=== PATIENT | female | born 1975 | race Hispanic/Latino ===

== ENCOUNTER 2018-02-18 14:59 | Emergency (ER) | payer MEDICARE, MEDICAID ==
[2018-02-18] MEDS ORDERED: Fluorescein Opthalmic Strip ONE (15:23)
[2018-02-18] MEDS ORDERED: Proparacaine 0.5% Opth 15 ML BOT ONE (15:24)
== END 2018-02-18 16:00 | disposition home or self-care (01) ==
LOC: ERS 14:59
DX: S05.02XA Injury of conjunctiva and corneal abrasion without foreign body, left eye, initial encounter (principal); I10 Essential (primary) hypertension; G43.909 Migraine, unspecified, not intractable, without status migrainosus; K21.9 Gastro-esophageal reflux disease without esophagitis; F17.210 Nicotine dependence, cigarettes, uncomplicated; Z79.899 Other long term (current) drug therapy; X58.XXXA Exposure to other specified factors, initial encounter
CPT/HCPCS: 99283

== ENCOUNTER 2018-03-05 13:13 | Emergency (ER) | payer MEDICARE, MEDICAID ==
[2018-03-05] MEDS ORDERED: Ketorolac Tromethamine 30 MG/ML VIAL ONE (14:00)
--- NOTE | 2018-03-05 14:45 | RAD ---
THREE VIEWS LEFT ANKLE: COMPARISON: None. HISTORY: Left ankle pain after falling 2 days ago. FINDINGS: Three views left ankle show moderate diffuse soft tissue swelling. There is a small fragment adjacen t to the tip of the lateral malleolus which may be acute. No other fractures or dislocations are see n. IMPRESSION: Small avulsion fracture of the tip of the lateral malleolus. POS: [facility]
== END 2018-03-05 14:50 | disposition home or self-care (01) ==
LOC: ERS 13:13
DX: S82.62XA Displaced fracture of lateral malleolus of left fibula, initial encounter for closed fracture (principal); I10 Essential (primary) hypertension; G43.909 Migraine, unspecified, not intractable, without status migrainosus; K21.9 Gastro-esophageal reflux disease without esophagitis; F41.9 Anxiety disorder, unspecified; F32.9 Major depressive disorder, single episode, unspecified; F17.210 Nicotine dependence, cigarettes, uncomplicated; Z71.6 Tobacco abuse counseling; W01.0XXA Fall on same level from slipping, tripping and stumbling without subsequent striking against object, initial encounter
CPT/HCPCS: 96372; 99406; J1885

== ENCOUNTER 2018-08-25 14:55 | Outpatient (CLI) | payer MEDICARE, MEDICAID | END 2018-08-25 14:56 | disposition home or self-care (01) | LOC: BICMAMMO 14:55 | PROVIDERS: ATTEND Family Medicine | DX: Z12.31 Encounter for screening mammogram for malignant neoplasm of breast (principal); Z80.3 Family history of malignant neoplasm of breast | CPT/HCPCS: 77063; 77067 ==

== ENCOUNTER 2018-09-18 10:48 | Emergency (ER) | payer MEDICARE, OTHER ==
[2018-09-18 11:48] LABS: #Basophils 0.1 thou/uL (0.0-0.2); #Eosinphils 0.2 thou/uL (0.0-0.7); #Lymphocytes 2.9 thou/uL (1.20-3.40); #Monocytes 0.8 thou/uL (0.11-0.59); #Neutrophils 5.4 thou/uL (1.40-6.50); %Basophils 1.2 % (0.0-1.0); %Eosinophils 2.2 % (0.0-10.0); %Lymphocytes 31.1 % (21.0-51.0); %Monocytes 8.7 % (0.0-10.0); %Neutrophils 56.8 % (42.0-75.0); Hemoglobin 14.2 g/dL (12.0-16.0); Mean Corpuscular HGB CONC 35.5 g/dL (32.0-36.0); Mean Corpuscular Hemoglobin 32.4 pg (27.0-31.0); Mean Corpuscular Volume 91.3 fL (78.0-98.0); Mean Platelet Volume 7.2 fL (7.4-10.4); Platelet Count 276 thou/uL (130-400); RBC Distribution Width 12.3 % (11.5-14.5); Red Blood Cell (RBC) Count 4.38 mill/uL (4.20-5.40); White Blood Cell (WBC) Count 9.4 thou/uL (4.8-10.8)
[2018-09-18 11:57] LABS: Bilirubin Negative (Negative); Blood, Urine Negative (Negative); Clarity CLEAR (Clear); Glucose, Urine (Dipstick) Negative (Negative); Leukocyte Negative (Negative); Nitrite Negative (Negative); Protein, Urine (Dipstick) Negative (Neg-Trace); Specific Gravity, Urine 1.022 (1.002-1.036); Urobilinogen 0.2 mg/dL (0.2-1.0)
[2018-09-18 12:04] LABS: ALT (SGPT) 13 U/L (8-55); AST (SGOT) 14 U/L (5-34); Albumin 3.9 g/dL (3.5-5.0); Alkaline Phosphatase 73 U/L (40-150); Anion Gap 14 mmol/L (10-20); BUN (Urea Nitrogen) 17 mg/dL (7.0-18.7); Bilirubin, Total 0.2 mg/dL (0.2-1.2); Calc. Creatinine Clearance 0 mL/min (70-130); Calcium 8.7 mg/dL (7.8-10.44); Carbon Dioxide 24 mmol/L (22-29); Chloride 102 mmol/L (98-107); Estimated GFR-MDRD 63; Globulin 4.1 g/dL (2.4-3.5); Glucose 101 mg/dL (70-105); Potassium 3.6 mmol/L (3.5-5.1); Sodium 136 mmol/L (136-145)
[2018-09-18] MEDS ORDERED: Ketorolac Tromethamine 30 MG/ML VIAL ONE (12:55)
--- NOTE | 2018-09-18 13:32 | CT ---
CT ABDOMEN AND PELVIS NONCONTRAST: Date: 09/18/18 HISTORY: Right flank pain. COMPARISON: 06/15/13. FINDINGS: Each renal collecting system, ureter, and the urinary bladder are decompressed without stone evident. Phleboliths are noted within the retroperitoneum. Lack of contrast decreases sensitivity of exam for other abnormalities. No evidence of bowel obstruct ion. There is ill-defined soft tissue density and subtle fat stranding along the superficial margin o f the right lower rectus abdominus muscle. The appearance is similar to the previous exam. Reactive a ppearing right inguinal lymph nodes are partially visualized. Again, this is similar to the previous study. IMPRESSION: 1. No CT evidence of urinary tract obstruction or calcification. 2. Subtle stranding of the musculature and deep subcutaneous fat of the right lower quadrant at the expected level of a scar. Clinical correlation regarding other signs and symptoms, and poss ibility of scar endometriosis in the right lower quadrant is required. POS: [facility]
== END 2018-09-18 14:11 | disposition home or self-care (01) ==
LOC: ERS 10:48
DX: R10.31 Right lower quadrant pain (principal); I10 Essential (primary) hypertension; G43.909 Migraine, unspecified, not intractable, without status migrainosus; G40.909 Epilepsy, unspecified, not intractable, without status epilepticus; K21.9 Gastro-esophageal reflux disease without esophagitis; J45.909 Unspecified asthma, uncomplicated; F41.9 Anxiety disorder, unspecified; F32.9 Major depressive disorder, single episode, unspecified
CPT/HCPCS: 36415; 74176; 80053; 81003; 85025; 87077; 87086; 87186; 94760; 96361; 96374; J1885

== ENCOUNTER 2020-04-15 11:01 | Emergency (ER) | payer MEDICARE, OTHER ==
[2020-04-15] MEDS ORDERED: Iopamidol-370 76% 500 ML 1 ML ONE (11:54)
[2020-04-15 12:07] LABS: #Eosinphils 0.1 thou/uL (0.0-0.7); #Lymphocytes 1.9 thou/uL (1.20-3.40); #Monocytes 0.8 thou/uL (0.11-0.59); #Neutrophils 7.6 thou/uL (1.40-6.50); %Basophils 0.2 % (0.0-1.0); %Lymphocytes 18.5 % (21.0-51.0); %Monocytes 7.7 % (0.0-10.0); %Neutrophils 72.6 % (42.0-75.0); Mean Corpuscular HGB CONC 33.8 g/dL (32.0-36.0); Mean Corpuscular Hemoglobin 30.7 pg (27.0-31.0); Mean Corpuscular Volume 90.9 fL (78.0-98.0); Mean Platelet Volume 7.3 fL (7.4-10.4); Platelet Count 335 thou/uL (130-400); RBC Distribution Width 12.7 % (11.5-14.5); Red Blood Cell (RBC) Count 4.57 mill/uL (4.20-5.40); White Blood Cell (WBC) Count 10.5 thou/uL (4.8-10.8)
[2020-04-15 12:07] LABS: Bilirubin Negative (Negative); Blood, Urine Negative (Negative); Clarity Clear (Clear); Glucose, Urine (Dipstick) Normal (Negative); Ketone, Urine Negative (Negative); Leukocyte Negative Leu/uL (Negative); Nitrite Negative (Negative); Protein, Urine (Dipstick) Negative (Neg-Trace); Urobilinogen Normal mg/dL (Less than 2)
[2020-04-15 12:15] LABS: BHCG - Serum Negative (NEGATIVE); Pregs Control Background? CLEAR/WHITE (CLR/WHITE); Pregs Control Bar Appear? YES (CONTROL BAR)
[2020-04-15] MEDS ORDERED: Morphine 4 MG/ML VIAL ONE ×2 (12:28)
[2020-04-15] MEDS ORDERED: Ondansetron PF 4 MG/2 ML Vial ONE (12:28)
[2020-04-15 12:33] LABS: ALT (SGPT) 12 U/L (8-55); AST (SGOT) 13 U/L (5-34); Albumin 3.8 g/dL (3.5-5.0); Alkaline Phosphatase 67 U/L (40-110); Anion Gap 9 mmol/L (10-20); BUN (Urea Nitrogen) 11 mg/dL (7.0-18.7); Bilirubin, Total 0.4 mg/dL (0.2-1.2); Calc. Creatinine Clearance 0 mL/min (70-130); Calcium 8.1 mg/dL (7.8-10.44); Carbon Dioxide 26 mmol/L (22-29); Chloride 105 mmol/L (98-107); Estimated GFR-MDRD 86; Globulin 3.9 g/dL (2.4-3.5); Glucose 122 mg/dL (70-105); Lipase 13 U/L (8-78); Potassium 3.4 mmol/L (3.5-5.1); Protein, Total 7.7 g/dL (6.0-8.3); Sodium 137 mmol/L (136-145)
--- NOTE | 2020-04-15 13:50 | CT ---
CT ABDOMEN WITH CONTRAST CT PELVIS WITH CONTRAST: DATE: 04/15/2020 HISTORY: 44-year-old female with right lower quadrant abdominal pain with nausea COMPARISON: 09/18/2018 TECHNIQUE: IV injection of iodinated contrast media: administered. Oral contrast media:Not administered FINDINGS: There is multicomponent complex cystic structure in the right pelvic cavity at the pelvic inlet. The largest cystic component is approximately 4 x 4 by 4.5 cm. Anterior to that, there is a 4 x 3.5 x 3 cm cystic component. There are smaller cystic and solid soft tissue components in between. This entir e complex represents a significant interval change since the previous CT. Tiny, minimal amount of free fluid more posteriorly in the pelvic cavity. Absent uterus. No colonic d iverticulitis, small bowel dilation, or pneumoperitoneum. Unremarkable urinary bladder, abdominal aorta, kidneys, liver right adrenal, pancreas, and spleen. Left adrenal mass, 3.5 x 2.3 x 2.5 cm, not significantly changed. Anterior and inferior to the left adrenal nodule, there is a 2 x 1.9 x 1.6 cm enlarged lymph node abu tting the anterior surface of the left renal artery and vein. It has not significant changed. IMPRESSION: 1) complex multichambered cystic mass in the right adnexa. 2) left adrenal mass, unchanged. 3) enlarged left upper retroperitoneal lymph node anterior to the left renal vein and artery, [facility] ed.
== END 2020-04-15 15:02 | disposition home or self-care (01) ==
LOC: ERS 11:01
DX: N83.8 Other noninflammatory disorders of ovary, fallopian tube and broad ligament (principal); J44.9 Chronic obstructive pulmonary disease, unspecified; I10 Essential (primary) hypertension; F17.210 Nicotine dependence, cigarettes, uncomplicated; F41.9 Anxiety disorder, unspecified; Z79.899 Other long term (current) drug therapy
CPT/HCPCS: 36415; 74177; 80053; 81003; 83690; 84703; 85025; 96361; 96374; 96375; J2270; J2405; Q9967

== ENCOUNTER 2020-06-24 10:01 | Outpatient (CLI) | payer MEDICARE, MEDICAID | END 2020-06-24 10:02 | disposition home or self-care (01) | LOC: CTENTCT 10:01 | PROVIDERS: ATTEND Student in an Organized Health Care Education/Training Program | DX: J32.9 Chronic sinusitis, unspecified (principal) | CPT/HCPCS: 70486 ==

== ENCOUNTER 2020-12-19 14:01 | Outpatient (CLI) | payer MEDICARE, MEDICAID ==
[2020-12-19 16:53] LABS: Anion Gap 16 mmol/L (10-20); BUN (Urea Nitrogen) 12 mg/dL (7.0-18.7); Calc. Creatinine Clearance 0 mL/min (70-130); Calcium 9.3 mg/dL (7.8-10.44); Carbon Dioxide 28 mmol/L (22-29); Chloride 97 mmol/L (98-107); Glucose 72 mg/dL (70-105); Potassium 4.1 mmol/L (3.5-5.1); Sodium 137 mmol/L (136-145)
[2020-12-20 01:48] LABS: SARS-CoV-2 PCR by NAA Not Detected (NotDetected)
== END 2020-12-19 14:02 | disposition home or self-care (01) ==
LOC: LABBT 14:01
PROVIDERS: ATTEND Student in an Organized Health Care Education/Training Program
DX: Z01.818 Encounter for other preprocedural examination (principal); Z20.822 Contact with and (suspected) exposure to COVID-19
CPT/HCPCS: 80048; 85014; 93005; U0003; U0005; 87635; 93010

== ENCOUNTER 2020-12-24 08:33 | Day surgery (SDC) | payer MEDICARE, MEDICAID ==
[2020-12-23 11:28] VITALS: BMI 46.6
[2020-12-24] MEDS ORDERED: AFRIN NASAL MIST 15 ML BOT ONE ×2 (08:41→08:43)
[2020-12-24] MEDS ORDERED: Bacitracin Zinc Ointment 30 gm TUBE ONE (08:43)
[2020-12-24] MEDS ORDERED: Lidocaine 1% w/Epinephrine 1:100K 20 ML VIAL ONE (08:43)
[2020-12-24] MEDS ORDERED: Fentanyl 250 MCG/5 ML VIAL ONE (10:33)
[2020-12-24] MEDS ORDERED: PROPOFOL 200 MG/20 ML VIAL ONE (10:37)
[2020-12-24] MEDS ORDERED: Glycopyrrolate 0.2 MG/ML 5 ML SYRINGE ONE (10:37)
[2020-12-24] MEDS ORDERED: Dexamethasone 20 MG/5 ML VIAL ONE (10:37)
[2020-12-24] MEDS ORDERED: Labetalol HCl 100 MG/20 ML VIAL ONE ×2 (10:37→13:36)
[2020-12-24] MEDS ORDERED: PHENYLEPHRINE-NS 100 MCG/ML 10 ML SYRINGE ONE (10:37)
[2020-12-24] MEDS ORDERED: Rocuronium Bromide 10 MG/ML (10ML VIAL) ONE (10:37)
[2020-12-24] MEDS ORDERED: Ondansetron PF 4 MG/2 ML Vial ONE (10:37)
[2020-12-24] MEDS ORDERED: Lidocaine 1% PF 5 ML VIAL ONE (10:37)
[2020-12-24] MEDS ORDERED: ePHEDrine Sulfate 50 MG/10 ML VIAL ONE (10:37)
[2020-12-24] MEDS ORDERED: EPINEPHrine 1 MG/ML AMP ONE (10:55)
[2020-12-24] MEDS ORDERED: Fentanyl 100 MCG/2 ML VIAL ONE ×2 (12:33→13:01)
[2020-12-24] MEDS ORDERED: HYDROcodone/Acetaminophen 5/325 mg Tablet ONE (12:46)
== END 2020-12-24 15:28 | disposition home or self-care (01) ==
LOC: SDC 08:33
PROVIDERS: ATTEND Student in an Organized Health Care Education/Training Program
PROC: 8E09XBZ Computer Assisted Procedure of Head and Neck Region (ICD-10-PCS; principal; 2020-12-24)
PROC: 09QT4ZZ Repair Left Frontal Sinus, Percutaneous Endoscopic Approach (ICD-10-PCS; 2020-12-24)
PROC: 09QW4ZZ Repair Right Sphenoid Sinus, Percutaneous Endoscopic Approach (ICD-10-PCS; 2020-12-24)
PROC: 09QX4ZZ Repair Left Sphenoid Sinus, Percutaneous Endoscopic Approach (ICD-10-PCS; 2020-12-24)
PROC: 09QQ4ZZ Repair Right Maxillary Sinus, Percutaneous Endoscopic Approach (ICD-10-PCS; 2020-12-24)
PROC: 09QR4ZZ Repair Left Maxillary Sinus, Percutaneous Endoscopic Approach (ICD-10-PCS; 2020-12-24)
PROC: 09QS4ZZ Repair Right Frontal Sinus, Percutaneous Endoscopic Approach (ICD-10-PCS; 2020-12-24)
PROC: 09BR8ZZ Excision of Left Maxillary Sinus, Via Natural or Artificial Opening Endoscopic (ICD-10-PCS; 2020-12-24)
PROC: 09BQ8ZZ Excision of Right Maxillary Sinus, Via Natural or Artificial Opening Endoscopic (ICD-10-PCS; 2020-12-24)
PROC: 09TL8ZZ Resection of Nasal Turbinate, Via Natural or Artificial Opening Endoscopic (ICD-10-PCS; 2020-12-24)
DX: J32.9 Chronic sinusitis, unspecified (principal); R51.9 Headache, unspecified; J30.9 Allergic rhinitis, unspecified; J34.3 Hypertrophy of nasal turbinates; G40.909 Epilepsy, unspecified, not intractable, without status epilepticus; I10 Essential (primary) hypertension; F17.200 Nicotine dependence, unspecified, uncomplicated; Z79.899 Other long term (current) drug therapy; Z88.2 Allergy status to sulfonamides; Z91.040 Latex allergy status; Z91.011 Allergy to milk products; Z91.018 Allergy to other foods
CPT/HCPCS: J0171; J1100; J2405; J2704; J3010

== ENCOUNTER 2021-07-02 23:26 | Emergency (ER) | payer MEDICARE, OTHER ==
[2021-07-03] MEDS ORDERED: Morphine 4 MG/ML VIAL ONE (01:32)
== END 2021-07-03 02:40 | disposition home or self-care (01) ==
LOC: ERS 23:26
DX: S80.02XA Contusion of left knee, initial encounter (principal); J44.9 Chronic obstructive pulmonary disease, unspecified; I10 Essential (primary) hypertension; G40.909 Epilepsy, unspecified, not intractable, without status epilepticus; K21.9 Gastro-esophageal reflux disease without esophagitis; F17.210 Nicotine dependence, cigarettes, uncomplicated; Z79.899 Other long term (current) drug therapy; W18.30XA Fall on same level, unspecified, initial encounter
CPT/HCPCS: 96372; J2270

== ENCOUNTER 2022-10-21 19:30 | Outpatient (CLI) | payer OTHER | END 2022-10-21 19:31 | disposition home or self-care (01) | LOC: SLEEPLAB 19:30 | PROVIDERS: ATTEND Family Medicine | DX: G47.33 Obstructive sleep apnea (adult) (pediatric) (principal); G47.61 Periodic limb movement disorder; E66.9 Obesity, unspecified; K21.9 Gastro-esophageal reflux disease without esophagitis; R06.83 Snoring; F32.A Depression, unspecified; G47.00 Insomnia, unspecified; J44.9 Chronic obstructive pulmonary disease, unspecified; I10 Essential (primary) hypertension | CPT/HCPCS: 95811 ==

== ENCOUNTER 2023-03-22 13:36 | Outpatient (CLI) | payer OTHER | END 2023-03-22 13:37 | disposition home or self-care (01) | LOC: BICMAMMO 13:36 | PROVIDERS: ATTEND Family Medicine | DX: Z12.31 Encounter for screening mammogram for malignant neoplasm of breast (principal); Z80.3 Family history of malignant neoplasm of breast | CPT/HCPCS: 77063; 77067 ==

== ENCOUNTER 2023-10-20 15:35 | Emergency (ER) | payer OTHER ==
[2023-10-20 18:11] LABS: SARS-CoV-2 NAA Rapid Test Not Detected (NotDetected)
[2023-10-20 18:40] LABS: #Basophils 0.1 thou/uL (0.0-0.2); #Eosinphils 0.2 thou/uL (0.0-0.7); #Monocytes 0.7 thou/uL (0.11-0.59); #Neutrophils 4.1 thou/uL (1.40-6.50); %Basophils 0.7 % (0.0-1.0); %Eosinophils 2.7 % (0.0-10.0); %Lymphocytes 33.5 % (21.0-51.0); %Monocytes 8.6 % (0.0-10.0); Hematocrit 36.2 % (36.0-47.0); Hemoglobin 12.6 g/dL (12.0-16.0); Mean Corpuscular HGB CONC 34.8 g/dL (32.0-36.0); Mean Corpuscular Volume 89.2 fl (78.0-98.0); Mean Platelet Volume 9.7 fL (7.4-10.4); Platelet Count 230 10x3/uL (130-400); RBC Distribution Width 12.1 % (11.5-14.5); Red Blood Cell (RBC) Count 4.06 mill/uL (4.20-5.40); White Blood Cell (WBC) Count 7.7 10x3/uL (4.8-10.8)
[2023-10-20 18:55] LABS: BHCG - Serum Negative (NEGATIVE); Pregs Control Background? CLEAR/WHITE (CLR/WHITE); Pregs Control Bar Appear? YES (CONTROL BAR)
[2023-10-20 19:09] LABS: ALT (SGPT) 16 U/L (8-55); AST (SGOT) 15 U/L (5-34); Albumin 3.8 g/dL (3.5-5.0); Alkaline Phosphatase 88 U/L (40-110); Anion Gap 12 mmol/L (10-20); BUN (Urea Nitrogen) 10 mg/dL (7.0-18.7); Bilirubin, Total 0.2 mg/dL (0.2-1.2); Calc. Creatinine Clearance 0 mL/min (70-130); Calcium 8.4 mg/dL (7.8-10.44); Carbon Dioxide 29 mmol/L (22-29); Chloride 104 mmol/L (98-107); Estimated GFR 103; Globulin 3.4 g/dL (2.4-3.5); Glucose 136 mg/dL (70-105); Potassium 3.5 mmol/L (3.5-5.1); Protein, Total 7.2 g/dL (6.0-8.3); Sodium 141 mmol/L (136-145)
[2023-10-20 19:17] LABS: Troponin I Less than 0.010 ng/mL (< 0.028)
[2023-10-20] MEDS ORDERED: Labetalol HCl 100 MG/20 ML VIAL ONE (19:33)
[2023-10-20] MEDS ORDERED: Acetaminophen 325 MG TAB ONE (19:33)
[2023-10-20] MEDS ORDERED: cloNIDine 0.1 MG TAB ONE (20:41)
== END 2023-10-20 22:15 | disposition home or self-care (01) ==
LOC: ERS 15:35
DX: I10 Essential (primary) hypertension (principal); J44.9 Chronic obstructive pulmonary disease, unspecified; F17.210 Nicotine dependence, cigarettes, uncomplicated; J45.909 Unspecified asthma, uncomplicated; K21.9 Gastro-esophageal reflux disease without esophagitis; Z79.899 Other long term (current) drug therapy
CPT/HCPCS: 0240U; 70450; 71045; 83880; 84484; 84703; 93005; 36415; 80053; 84443; 85025

== ENCOUNTER 2024-02-11 08:48 | Emergency (ER) | payer OTHER ==
[2024-02-11] MEDS ORDERED: Dexamethasone 4 mg/ml Vial ONE (09:23)
== END 2024-02-11 09:30 | disposition home or self-care (01) ==
LOC: ERS 08:48
DX: J02.0 Streptococcal pharyngitis (principal)
CPT/HCPCS: 99282; J1100